=== PATIENT | male | born 1965 | race Caucasian/White ===

== ENCOUNTER 2019-01-23 17:07 | Emergency (ER) | payer BC, SELFPAY ==
[2019-01-23 17:10] VITALS: BP 141/87; PULSE 68; RESP 15; TEMP 36.2; O2SAT 100; BMI 32.1
--- NOTE | 2019-01-23 17:15 | DI.CT.S_ITS ---
PROCEDURE: CT HEAD/BRAIN WO CON INDICATIONS: worst ROSS of life TECHNIQUE: Noncontrast 4.5 mm thick angled axial sections acquired from the foramen magnum to the vertex, with coronal and sagittal reformats. For radiation dose reduction, the following was used: automated exposure control, adjustment of mA and/or kV according to patient size. COMPARISON: None. FINDINGS: Image quality: Excellent. CSF spaces: Basal cisterns are patent. No extra-axial fluid collections. Ventricles are normal in size and shape. Brain: No midline shift. No intracranial masses or hemorrhage. Davis-white matter interface is normal. Skull and face: Calvarium and visualized facial bones are intact, without suspicious lesions. Sinuses: Visualized sinuses and mastoids are clear. IMPRESSION: Unremarkable intracranial study, without findings of acute intracranial hemorrhage. Dictated by: Marcelo Longoria M.D. on 01/23/2019 at 17:05 Approved by: Marcelo Longoria M.D. on 01/23/2019 at 17:06
--- NOTE | 2019-01-23 17:20 | ED.DIZZY ---
HPI - Dizziness General Chief Complaint: Dizziness Stated Complaint: Nausea/Dizzy Time Seen by Provider: 01/23/19 17:14 Source: patient Mode of arrival: EMS Limitations: no limitations History of Present Illness HPI Narrative: 53-year-old male nonsmoker, nondrinker with history of headaches presents with the worst headache of his life that has been gradually worsening over the course of the day. He states his most of his head which is consistent with prior episodes of migraine as well as its worsening with bright lights and loud noise. He denies any injury. He has had no fever chills and denies any neck pain. He has never come to the emergency department for evaluation of his headaches. He has had multiple episodes of nausea and vomiting over the course of the day. He called for EMS transport but refused IV or fluids and route. He denies any other neurologic symptoms such as numbness, tingling or weakness MD complaint: dizziness and near syncope Onset (ago): hour(s) Timing: gradual onset History of similar episodes: Yes History of trauma: No Severity: moderate Relieving factors: remaining still Exacerbating factors: movement Associated symptoms: nausea and vomiting Related Data Home Medications Medication Instructions Recorded Confirmed Resmed Airsense 10 CPAP #1 ea 01/09/19 01/23/19 Previous Rx's Medication Instructions Recorded ondansetron 4 mg PO TID-QID PRN #10 tab 01/23/19 Allergies Allergy/AdvReac Type Severity Reaction Status Date / Time No Known Drug Allergies Allergy Verified 01/23/19 17:14 Review of Systems Constitutional Constitutional: Denies chills, Denies fatigue, Denies fever(s), Denies frequent falls, Reports headache(s), Denies lethargy and Denies weakness Eyes Eyes: Denies change in vision, Denies eye discharge, Denies irritation and Denies loss of vision ENT Ears, Nose, Mouth, and Throat: Denies change in voice, Denies dizziness, Reports headache(s), Denies neck pain, Denies sore throat and Denies throat swelling Cardiovascular Cardiovascular: Denies chest pain, Denies irregular heart rhythm, Denies lightheadedness, Denies palpitations, Denies dyspnea, Denies dyspnea on exertion and Denies orthopnea Respiratory Respiratory: Denies cough, Denies dyspnea, Denies dyspnea on exertion and Denies wheezing Gastrointestinal Gastrointestinal: Denies change in bowel habits, Denies diarrhea, Reports nausea and Reports vomiting Genitourinary Genitourinary: Denies hematuria, Denies flank pain, Denies urinary incontinence and Denies urinary urgency Musculoskeletal Musculoskeletal: Denies back pain, Denies muscle weakness, Denies neck pain, Denies numbness and Denies tingling Integumentary/Breasts Skin/Breast: Denies pruritus, Denies erythema, Denies rash and Denies wounds Neurologic Neurologic: Denies behavioral changes, Denies confusion, Denies dizziness, Denies frequent falls, Reports headache(s), Denies loss of vision, Denies numbness, Denies tingling and Denies weakness Psychiatric Psychiatric: Denies anxiety, Denies behavioral changes, Denies confusion, Denies depression, Denies homicidal ideation and Denies suicidal ideation Endocrine Endocrine: Denies fatigue, Denies flushing and Denies palpitations Hematologic/Lymphatic Hematologic/Lymphatic: Denies easy bruising Allergic/Immunologic Allergic/Immunologic: Denies urticaria, Denies throat swelling and Denies wheezing [facility] Medical History Insomnia (Chronic) Obstructive sleep apnea of adult (Chronic) Snoring (Chronic) Social History marital status: unmarried,single details: lives in [place] lives independently: Yes caregiver/support person: No Smoking Status: Unknown if ever smoked Social History marital status: unmarried,single details: lives in [place] lives independently: Yes caregiver/support person: No Smoking Status: Unknown if ever smoked Exam Narrative Exam Narrative: GENERAL: [53] year old patient appears stated age. Well-nourished, well-developed patient, in mild distress. Using his hat to cover his eyes HEAD: Atraumatic. Normocephalic. EYES: Pupils equal round and reactive. Extraocular motions intact. No scleral icterus. No injection or drainage. ENT: Nose without bleeding, purulent drainage. Throat without erythema, tonsillar hypertrophy or exudate. Airway patent. NECK: Trachea midline. Non tender CARDIOVASCULAR: Regular rate and rhythm without murmurs, gallops, or rubs. RESPIRATORY: Clear to auscultation. Breath sounds equal bilaterally. No wheezes, rales, or rhonchi. GASTROINTESTINAL: Abdomen soft, non-tender, nondistended. EXTREMITIES: No edema or joint tenderness. BACK: Nontender without deformity or crepitance. No flank tenderness. NEURO: AOx3. SKIN: No rash or erythema of visible areas NIH Stroke Scale 1a. LOC: Patient is alert and keenly responsive (0) 1b. LOC Questions: Patient answers both LOC questions accurately (0) 1c. LOC Commands: Patient performs both tasks correctly (0) 2. Best Gaze: Normal (0) 3. Visual: No visual loss (0) 4. Facial palsy: Normal symmetrical movements (0) 5. Motor arm: No drift (0) 6. Motor leg: No drift (0) 7. Limb ataxia: Absent (0) 8. Sensory: Normal (0) 9. Best language: No aphasia; normal (0) 10. Dysarthria: Normal (0) 11. Extinction and inattention: No abnormality (0) NIHSS: 0 Initial Vital Signs Initial Vital Signs: Vital Signs Temperature 97.2 F L 01/23/19 17:10 Pulse Rate 68 01/23/19 17:10 Respiratory Rate 15 01/23/19 17:10 Blood Pressure 141/87 H 01/23/19 17:10 Pulse Oximetry 100 01/23/19 17:10 Course Orders Ordered: ED Orders 01/23/19 17:15 CT head/brain wo con Stat 01/23/19 17:20 Basic Metabolic Panel Stat Complete Blood Count AUTO DIFF Stat Discontinued Medications Sodium Chloride (Normal Saline 0.9%) 1,000 mls @ 1,000 mls/hr IV BOLUS ONE Stop: 01/23/19 18:13 Last Infusion: 01/23/19 19:22 Dose: 0 mls/hr Documented by: Admin: 01/23/19 17:26 Dose: 1,000 mls/hr Documented by: HIRA Ketorolac Tromethamine (Toradol) 15 mg IV NOW ONE Stop: 01/23/19 19:01 Prochlorperazine (Compazine) 10 mg IV NOW ONE Stop: 01/23/19 17:15 Last Admin: 01/23/19 17:26 Dose: 10 mg Documented by: HIRA Reevaluation(s) Reevaluation #1: patient feeling much better after fluids. Refuses toradol as he no longer is having pain. Ambulates to the bathroom. Vital Signs Vital signs: Vital Signs - 8 hr 01/23/19 17:10 01/23/19 19:50 01/23/19 19:51 Temperature 97.2 F L Pulse Rate 68 74 Respiratory Rate 15 12 Blood Pressure 141/87 H Blood Pressure [Right Arm] 145/75 H Pulse Oximetry 100 99 MDM - Dizziness Lab Data Result diagrams: 01/23/19 17:20 01/23/19 17:20 Labs: Lab Results 01/23/19 01/23/19 Range/Units 17:20 17:20 WBC 8.2 (4.5-11.0) X10^3/uL RBC 5.41 (4.5-5.9) X10^6/uL Hgb 15.8 (13.5-17.5) g/dL Hct 46.1 (41-53) % MCV 85.2 (80-100) fL MCH 29.2 (26-34) PG MCHC 34.3 (30-36) % RDW 14.1 (11.6-14.8) % Plt Count 162 (150-400) X10^3/uL Neut % (Auto) 89.7 H (50-75) % Lymph % (Auto) 7.5 L (25-40) % Lyman % (Auto) 2.4 L (3-14) % Eos % (Auto) 0.1 L (2-4) % Baso % (Auto) 0.3 (0-2) % Neut # (Auto) 7400 H (0748-4600) /uL Lymph # (Auto) 600 L (4287-8056) /uL Lyman # (Auto) 200 (0-900) /uL Eos # (Auto) 0 (0-450) /uL Baso # (Auto) 0 (0-100) /uL Sodium 138 (137-145) mmol/L Potassium 3.9 (3.4-5.1) mmol/L Chloride 100 (98-107) mmol/L Carbon Dioxide 25 (22-32) mmol/L BUN 13 (9-20) mg/dL Creatinine 0.80 (0.66-1.25) mg/dL Estimated GFR > 60.0 (>60) mL/min BUN/Creatinine Ratio 16.3 (6-22) Glucose 189 H (70-100) mg/dL Calcium 9.4 (8.4-10.2) mg/dL Imaging Data CT scan - head: Radiologist's impression: [address] [address] [address] Scan Report Signed Patient: Abimael Sargent#: [id number] : 1965Acct:[id number] Age/Sex: 53 / MDate of Service: 01/23/19 Loc: ED Accession Number: [id number] Procedure: CT head/brain wo con Ordering Provider: Joss Krueger D.O. PROCEDURE: CT HEAD/BRAIN WO CON INDICATIONS: worst ROSS of life TECHNIQUE: Noncontrast 4.5 mm thick angled axial sections acquired from the foramen magnum to the vertex, with coronal and sagittal reformats. For radiation dose reduction, the following was used: automated exposure control, adjustment of mA and/or kV according to patient size. COMPARISON: None. FINDINGS: Image quality: Excellent. CSF spaces: Basal cisterns are patent. No extra-axial fluid collections. Ventricles are normal in size and shape. Brain: No midline shift. No intracranial masses or hemorrhage. Davis-white matter interface is normal. Skull and face: Calvarium and visualized facial bones are intact, without suspicious lesions. Sinuses: Visualized sinuses and mastoids are clear. IMPRESSION: Unremarkable intracranial study, without findings of acute intracranial hemorrhage. Dictated by: Marcelo Longoria M.D. on 01/23/2019 at 17:05 Approved by: Marcelo Longoria M.D. on 01/23/2019 at 17:06 [facility] Narrative Medical decision making narrative: 53-year-old male with history of migraines presents with gradual-onset headache resulting in nausea and vomiting. Very reassuring neurologic exam, normal labs, cat scan without significant findings. Patient responsive to above-stated therapies. Return precautions given, questions answered to his apparent satisfaction Discharge Plan Departure Patient Disposition: Home Clinical Impression: Headache Qualifiers: Headache type: unspecified Headache chronicity pattern: acute headache Intractability: not intractable Qualified Code(s): R51 - Headache Instructions: DI for Vomiting -- Adult, DI for Headache Activity Restrictions/Additional Instructions: 1. Drink plenty of fluids with frequent small sips. 2. For the next 24 hours a clear liquid diet is advised. After that please employ a brat diet which would include bananas, rice, apples, toast. 3. Please take medications as directed. 4. Please follow-up with your doctor in the next 1-2 days. Call the office for an appointment. 5. Please return to the emergency Department for any worsening or persistent symptoms, such as increasing pain or fever. Prescriptions: New ondansetron 4 mg tablet,disintegrating 4 mg PO TID-QID PRN (Reason: nausea and vomiting) Qty: 10 RF: 0 No Action (DME) Resmed Airsense 10 CPAP Qty: 1 RF: 0 Referrals: Jewel Garcia MD [Primary Care Provider] -
[2019-01-23] MEDS: PROCHLORPERAZINE 10 MG/2 ML VIAL IV (17:26)
[2019-01-23] MEDS: SODIUM CHLORIDE 0.9% 1,000 ML 1000 ML IV (17:26)
[2019-01-23 17:28] LABS: Add Manual Diff / Slide Review NO; Basophils Absolute Auto 0 /uL (0-100); Basophils Percent Auto 0.3 % (0-2); Eosinophils Absolute Auto 0 /uL (0-450); Eosinophils Percent Auto 0.1 % (2-4); Hematocrit 46.1 % (41-53); Hemoglobin 15.8 g/dL (13.5-17.5); Lymphocytes Absolute Auto 600 /uL (1100-4500); Lymphocytes Percent Auto 7.5 % (25-40); Mean Corpuscular HGB Conc 34.3 % (30-36); Mean Corpuscular Hemoglobin 29.2 PG (26-34); Mean Corpuscular Volume 85.2 fL (80-100); Monocytes Absolute Auto 200 /uL (0-900); Monocytes Percent Auto 2.4 % (3-14); Neutrophils Absolute Auto 7400 /uL (1500-7000); Neutrophils Percent Auto 89.7 % (50-75); Platelet Count 162 X10^3/uL (150-400); Red Blood Cell Count 5.41 X10^6/uL (4.5-5.9); Red Cell Distribution Width 14.1 % (11.6-14.8); White Blood Cell Count 8.2 X10^3/uL (4.5-11.0)
[2019-01-23 17:39] LABS: BUN Creatinine Ratio 16.3 (6-22); Blood Urea Nitrogen 13 mg/dL (9-20); Calcium 9.4 mg/dL (8.4-10.2); Carbon Dioxide 25 mmol/L (22-32); Chloride 100 mmol/L (98-107); Estimated Glomerular Filt Rate > 60.0 mL/min (>60); Glucose 189 mg/dL (70-100); HEMOLYSIS < 15 (0-50); Potassium 3.9 mmol/L (3.4-5.1); Sodium 138 mmol/L (137-145)
[2019-01-23 19:50] VITALS: PULSE 74; RESP 12; O2SAT 99
[2019-01-23 19:51] VITALS: BP 145/75
== END 2019-01-23 20:06 | disposition home or self-care (01) ==
PROVIDERS: Emergency Provider Emergency Medicine; Family Provider Internal Medicine; PCP Internal Medicine
DX: R51 Headache (principal); R11.0 Nausea; R07.9 Chest pain, unspecified
CPT/HCPCS: 36415; 70450; 80048; 85025; 93005; 93041; 96361; 96374; 99283; 99285; J0780